=== PATIENT | male | born 1965 | race Two or more races ===

== ENCOUNTER 2022-07-27 12:27 | Inpatient (IN) | payer OTHER ==
[2022-07-27] VITALS (38 sets, daily range): BP systolic 79–146; BP diastolic 43–126
[~2022-07-27] VITALS: Ht 157.5 cm; Wt 86.0 kg
[2022-07-27] MEDS ORDERED: ETOMIDATE (2MG/ML) 20ML VIAL IV ONE ×2 (12:28→12:45)
[2022-07-27] MEDS ORDERED: SUCCINYLCHOLINE CHLORIDE 20 MG/ML 10ML VIAL IV ONE ×2 (12:29→12:45)
[2022-07-27] MEDS ORDERED: MIDAZOLAM DRIP 50 mg/50mL 50 ML IV ONE (12:34)
[2022-07-27] MEDS: MIDAZOLAM DRIP 50 mg/50mL 50 ML IV SCH (12:39)
[2022-07-27] MEDS ORDERED: methylPREDNISolone SOD SUCC 125 MG/2 ML VL IV ONE (12:45)
[2022-07-27] MEDS: PROPOFOL 100 ML IV SCH (13:00)
[2022-07-27] MEDS ORDERED: PROPOFOL 100 ML IV ONE (13:02)
[2022-07-27 13:09] LABS: Basophils # (auto) 0 10 ^3/uL (0-0.2); Basophils % (auto) 0.5 % (0.0-2.0); Eosinophils # (auto) 0 10 ^3/uL (0-0.8); Hemoglobin 16.9 g/dL (13.5-17.5); Lymphocytes # (auto) 0.7 10 ^3/uL (0.4-5.4); Lymphocytes % (auto) 8.6 % (10.0-50.0); Mean Corpuscular Hemoglobin 29.1 pg (28.0-32.0); Mean Corpuscular Volume 91.2 fL (80.0-100.0); Monocytes # (auto) 0.9 10 ^3/uL (0-1.3); Monocytes % (auto) 10.8 % (0.0-12.0); Neutrophils # (auto) 6.3 10 ^3/uL (1.6-8.6); Neutrophils % (auto) 80.1 % (37.0-80.0); Red Blood Cells 5.81 10^6/uL (4.5-5.90); Red Cell Distribution Width 16.3 % (11.8-14.3); White Blood Cell 7.9 10^3/uL (4.4-10.8)
[2022-07-27] MEDS ORDERED: FUROSEMIDE 40 MG/4 ML VIAL IV ONE (14:00)
[2022-07-27] MEDS ORDERED: ROCURONIUM 10MG/ML 10ML VIAL IV ONE ×2 (14:06→14:30)
[2022-07-27 14:08] LABS: Nucleated Red Blood Cells % 9.6 %
[2022-07-27] MEDS ORDERED: IOHEXOL 300 MG/ML 100ML BOTTLE IJ ONE (14:18)
[2022-07-27] MEDS ORDERED: IOHEXOL 350 MG/ML 100ML IJ ONE (14:21)
[2022-07-27] MEDS ORDERED: NITROGLYCERIN 0.4 MG SL TAB SL PRN (15:15)
[2022-07-27] MEDS: fentaNYL Drip 2500mCg/250mlNS 250 ML IV SCH (15:15)
[2022-07-27] MEDS ORDERED: MORPHINE SULFATE INJ 2 MG/ml SYRG IV PRN (15:15)
[2022-07-27] MEDS ORDERED: IPRATROPIUM BROM 0.5 MG/2.5ML INH SOL NEB SCH (15:30)
[2022-07-27] MEDS ORDERED: ONDANSETRON HCL 4 MG/2 ML VIAL IV PRN (15:30)
[2022-07-27 16:02] LABS: Urine Bacteria FEW /hpf (None Seen); Urine Blood 2+ /uL (Negative); Urine Hyaline Cast MANY /lpf (0 - 2); Urine Mucus FEW (None Seen); Urine Specific Gravity 1.023 (1.001-1.035); Urine Sperm PRESENT /hpf (None Seen); Urine WBC 5 /hpf (0 - 3)
[2022-07-27 16:54] LABS: Alkaline Phosphatase 114 U/L (45-117); Anion Gap 17 (5-15); Aspartate Aminotransferase 591 U/L (15-37); Carbon Dioxide 21 mmol/L (21-32); Chloride 94 mmol/L (98-107); GFR African American 14 mL/min; GFR Non-African American 11 mL/min; Glucose 144 mg/dL (74-106); Sodium 132 mmol/L (136-145)
[2022-07-27 16:55] LABS: Albumin 2.4 g/dL (3.4-5.0); Bilirubin, Total 8.8 mg/dL (0.2-1.0); CRP High Sensitivity 8.37 mg/dL (< 0.3); Calcium 6.6 mg/dL (8.5-10.1); Magnesium 3.4 mg/dL (1.6-2.6); Total Protein 5.1 g/dL (6.4-8.2)
[2022-07-27 16:58] LABS: Alanine Aminotransferase 1380 U/L (16-61)
[2022-07-27 17:00] LABS: BUN/Creatinine Ratio 33.9; Blood Urea Nitrogen 187 mg/dL (7-18); Potassium 6.6 mmol/L (3.5-5.1)
[2022-07-27] MEDS: NOREPINEPHRINE 8 MG/250ML KIT 250 ML IV SCH (17:00)
[2022-07-27] MEDS ORDERED: CALCIUM GLUC 1,000mg/50ml-NS 50 ML IV ONE ×2 (17:30→23:15)
[2022-07-27] MEDS ORDERED: InsuLIN REG 1unit/0.01ml Soln (100units/ml) IV ONE ×3 (17:30→23:15)
[2022-07-27] MEDS ORDERED: SODIUM BICARBONATE 8.4 % INJ 50ML VIAL IV ONE ×2 (17:30→23:15)
[2022-07-27] MEDS ORDERED: SODIUM BICARBONATE 8.4% INJ 50ML SYRINGE IV ONE (17:30)
[2022-07-27] MEDS ORDERED: DEXTROSE (50%) 50ML SYRG IV ONE ×3 (17:30→23:15)
[2022-07-27] MEDS: ALBUTEROL SULF 2.5 MG/0.5ML(0.5%) NEB SOLN NEB SCH (18:24)
[2022-07-27] MEDS: IPRATROPIUM BROM 0.5 MG/2.5ML INH SOL NEB SCH (18:24)
[2022-07-27] MEDS: BUDESONIDE (INHALATION) 0.5 MG/2 ML NEB NEB SCH (18:24)
[2022-07-27 20:05] LABS: Amphetamine Screen, Urine NEGATIVE (NEGATIVE); Barbiturate Scree,Urine NEGATIVE (NEGATIVE); Benzodiazephine Screen, Urine POSITIVE (NEGATIVE); Cannabinoid Screen, Urine NEGATIVE (NEGATIVE); Cocaine Screen, Urine NEGATIVE (NEGATIVE); Opiate Scree,Urine NEGATIVE (NEGATIVE); Phencyclidine Screen, Urine NEGATIVE (NEGATIVE)
[2022-07-27] MEDS: methylPREDNISolone SOD SUCC 40 MG/ML VL IV SCH (22:00)
[2022-07-27 22:05] LABS: BUN/Creatinine Ratio 39.2; Calcium 6.8 mg/dL (8.5-10.1)
[2022-07-28] VITALS (105 sets, daily range): BP systolic 64–159; BP diastolic 35–72
[2022-07-28] MEDS: IPRATROPIUM BROM 0.5 MG/2.5ML INH SOL NEB SCH ×4 (00:14→18:22)
[2022-07-28] MEDS: MIDAZOLAM DRIP 50 mg/50mL 50 ML IV SCH ×6 (01:49→23:47)
[2022-07-28 04:11] LABS: Basophils # (auto) 0 10 ^3/uL (0-0.2); Basophils % (auto) 0.3 % (0.0-2.0); Eosinophils # (auto) 0 10 ^3/uL (0-0.8); Hematocrit 50.5 % (41.0-53.0); Hemoglobin 16.5 g/dL (13.5-17.5); Lymphocytes # (auto) 0.2 10 ^3/uL (0.4-5.4); Lymphocytes % (auto) 1.8 % (10.0-50.0); Mean Corpuscular Hemoglobin 28.5 pg (28.0-32.0); Mean Corpuscular Hgb Conc. 32.7 g/dL (32.0-36.0); Mean Corpuscular Volume 87.2 fL (80.0-100.0); Monocytes # (auto) 0.3 10 ^3/uL (0-1.3); Monocytes % (auto) 2.8 % (0.0-12.0); Neutrophils # (auto) 9.2 10 ^3/uL (1.6-8.6); Neutrophils % (auto) 95.1 % (37.0-80.0); Red Blood Cells 5.79 10^6/uL (4.5-5.90); Red Cell Distribution Width 15.9 % (11.8-14.3); White Blood Cell 9.6 10^3/uL (4.4-10.8)
[2022-07-28 04:25] LABS: Nucleated Red Blood Cells % 3.1 %
[2022-07-28 05:30] LABS: Albumin 2.5 g/dL (3.4-5.0); BUN/Creatinine Ratio 41.8; Bilirubin, Total 11.6 mg/dL (0.2-1.0); Calcium 7.5 mg/dL (8.5-10.1); Magnesium 2.9 mg/dL (1.6-2.6); Total Protein 5.4 g/dL (6.4-8.2)
[2022-07-28 05:32] LABS: Potassium 5.8 mmol/L (3.5-5.1)
[2022-07-28] MEDS: BUDESONIDE (INHALATION) 0.5 MG/2 ML NEB NEB SCH ×2 (05:59→18:22)
[2022-07-28] MEDS: ALBUTEROL SULF 2.5 MG/0.5ML(0.5%) NEB SOLN NEB SCH ×3 (05:59→18:22)
[2022-07-28] MEDS ORDERED: CALCIUM GLUC 1,000mg/50ml-NS 50 ML IV ONE ×3 (06:00→09:30)
[2022-07-28] MEDS ORDERED: DEXTROSE (50%) 50ML SYRG IV ONE (06:00)
[2022-07-28] MEDS ORDERED: SODIUM BICARBONATE 8.4 % INJ 50ML VIAL IV ONE ×3 (06:00→09:45)
[2022-07-28] MEDS ORDERED: InsuLIN REG 1unit/0.01ml Soln (100units/ml) IV ONE (06:00)
[2022-07-28] MEDS ORDERED: DEXTROSE 50% SYRINGE 50 ML IV ONE (06:03)
[2022-07-28] MEDS ORDERED: MILRINONE 20MG/100ML 100 ML IV SCH (08:00)
[2022-07-28] MEDS ORDERED: ALBUTEROL SULF 2.5 MG/0.5ML(0.5%) NEB SOLN NEB ONE (09:30)
[2022-07-28] MEDS ORDERED: SODIUM BICARBONATE 8.4% INJ 50ML SYRINGE IV ONE (09:30)
[2022-07-28] MEDS ORDERED: SODIUM ZIRCONIUM CYCL 10 GM PAK PO ONE (09:30)
[2022-07-28] MEDS ORDERED: SODIUM CHLORIDE 0.9% 2,000 ML IV ONE (09:45)
[2022-07-28] MEDS ORDERED: FUROSEMIDE 100 MG/10ML VIAL IV ONE (09:45)
[2022-07-28] MEDS ORDERED: ALBUTEROL SULF 2.5 MG/0.5ML(0.5%) NEB SOLN ONE (09:46)
[2022-07-28] MEDS: PANTOPRAZOLE 40 MG/10 ML VIAL INJ IV SCH (09:47)
[2022-07-28] MEDS: methylPREDNISolone SOD SUCC 40 MG/ML VL IV SCH (09:47)
[2022-07-28] MEDS ORDERED: ENOXAPARIN SOD 40 MG/0.4 ML SYRINGE SC SCH (10:00)
[2022-07-28] MEDS: SODIUM CHLORIDE 0.9% 1,000 ML IV SCH ×4 (11:21→23:58)
[2022-07-28] MEDS: fentaNYL Drip 2500mCg/250mlNS 250 ML IV SCH (11:22)
[2022-07-28] MEDS: NOREPINEPHRINE 8 MG/250ML KIT 250 ML IV SCH (12:07)
[2022-07-28] MEDS: PROPOFOL 100 ML IV SCH (13:00)
[2022-07-28 13:26] LABS: Calcium 7.4 mg/dL (8.5-10.1); Potassium 4.4 mmol/L (3.5-5.1)
[2022-07-28 13:33] LABS: BUN/Creatinine Ratio 42.6
[2022-07-28] MEDS: SODIUM ZIRCONIUM CYCL 10 GM PAK PO SCH ×2 (14:00→21:34)
[2022-07-28] MEDS ORDERED: MEROPENEM 500MG IVPB 50 ML IV ONE (16:15)
[2022-07-28] MEDS ORDERED: SODIUM CHLORIDE 0.9% 1,000 ML IV SCH (16:15)
[2022-07-28] MEDS: ALBUMIN 25% 100 ML IV SCH (16:58)
[2022-07-28 17:58] LABS: Calcium 7.7 mg/dL (8.5-10.1); Potassium 4.4 mmol/L (3.5-5.1)
[2022-07-28 18:12] LABS: BUN/Creatinine Ratio 41.1
[2022-07-28] MEDS: NOREPINEPHRINE BITARTRATE 16 MG in SODIUM CHL 0.9% 234 ML IV SCH (19:35)
[2022-07-28] MEDS ORDERED: PHENYLEPHRINE IV 250 ML IV ONE (19:48)
[2022-07-28] MEDS ORDERED: PHENYLEPHRINE HCL 10 MG/ML VL ONE (19:48)
[2022-07-28] MEDS: PHENYLEPHRINE INJ 40 MG in SODIUM CHL 0.9% 246 ML IV SCH (19:55)
[2022-07-28] MEDS: MEROPENEM 500MG IVPB 50 ML IV SCH (21:35)
[2022-07-29] VITALS (104 sets, daily range): BP systolic 95–199; BP diastolic 45–193
[2022-07-29] MEDS: IPRATROPIUM BROM 0.5 MG/2.5ML INH SOL NEB SCH ×4 (00:19→18:09)
[2022-07-29] MEDS: ALBUMIN 25% 100 ML IV SCH ×2 (00:48→09:41)
[2022-07-29 03:38] LABS: Basophils # (auto) 0.1 10 ^3/uL (0-0.2); Basophils % (auto) 0.5 % (0.0-2.0); Eosinophils # (auto) 0 10 ^3/uL (0-0.8); Hematocrit 48.6 % (41.0-53.0); Hemoglobin 15.8 g/dL (13.5-17.5); Lymphocytes # (auto) 0.1 10 ^3/uL (0.4-5.4); Lymphocytes % (auto) 1.4 % (10.0-50.0); Mean Corpuscular Hgb Conc. 32.4 g/dL (32.0-36.0); Mean Corpuscular Volume 86.5 fL (80.0-100.0); Monocytes # (auto) 0.6 10 ^3/uL (0-1.3); Neutrophils # (auto) 9.3 10 ^3/uL (1.6-8.6); Neutrophils % (auto) 92.1 % (37.0-80.0); Nucleated Red Blood Cells % 1.8 %; Red Blood Cells 5.62 10^6/uL (4.5-5.90); White Blood Cell 10.1 10^3/uL (4.4-10.8)
[2022-07-29 03:47] LABS: Potassium 4.2 mmol/L (3.5-5.1)
[2022-07-29 03:53] LABS: Partial Thromboplastin Time 41.3 sec (24.6-33.4)
[2022-07-29 03:55] LABS: Bilirubin, Total 15.3 mg/dL (0.2-1.0); INR 3.25 (0.9-1.15); Total Protein 5.6 g/dL (6.4-8.2)
[2022-07-29] MEDS: MIDAZOLAM DRIP 50 mg/50mL 50 ML IV SCH ×4 (04:34→20:16)
[2022-07-29] MEDS: NOREPINEPHRINE BITARTRATE 16 MG in SODIUM CHL 0.9% 234 ML IV SCH (05:04)
[2022-07-29] MEDS: SODIUM ZIRCONIUM CYCL 10 GM PAK PO SCH ×3 (06:01→21:50)
[2022-07-29] MEDS: ALBUTEROL SULF 2.5 MG/0.5ML(0.5%) NEB SOLN NEB SCH ×3 (06:06→18:09)
[2022-07-29] MEDS: BUDESONIDE (INHALATION) 0.5 MG/2 ML NEB NEB SCH ×2 (06:06→18:09)
[2022-07-29] MEDS: PANTOPRAZOLE 40 MG/10 ML VIAL INJ IV SCH (09:39)
[2022-07-29] MEDS: MEROPENEM 500MG IVPB 50 ML IV SCH ×2 (09:40→21:51)
[2022-07-29] MEDS ORDERED: methylPREDNISolone SOD SUCC 40 MG/ML VL IV SCH (10:00)
[2022-07-29] MEDS: fentaNYL Drip 2500mCg/250mlNS 250 ML IV SCH (11:19)
[2022-07-29] MEDS: PHENYLEPHRINE INJ 40 MG in SODIUM CHL 0.9% 246 ML IV SCH (11:19)
[2022-07-29] MEDS: SODIUM CHLORIDE 0.9% 1,000 ML IV SCH ×2 (11:19→20:16)
[2022-07-29] MEDS: PROPOFOL 100 ML IV SCH (11:19)
[2022-07-30] VITALS (107 sets, daily range): BP systolic 90–158; BP diastolic 43–153
[2022-07-30] MEDS: IPRATROPIUM BROM 0.5 MG/2.5ML INH SOL NEB SCH ×6 (00:16→22:09)
[2022-07-30] MEDS: MIDAZOLAM DRIP 50 mg/50mL 50 ML IV SCH ×4 (01:43→22:25)
[2022-07-30 03:44] LABS: Basophils # (auto) 0 10 ^3/uL (0-0.2); Basophils % (auto) 0.4 % (0.0-2.0); Eosinophils # (auto) 0 10 ^3/uL (0-0.8); Eosinophils % (auto) 0.2 % (0.0-7.0); Hematocrit 40.7 % (41.0-53.0); Hemoglobin 13.9 g/dL (13.5-17.5); Lymphocytes # (auto) 0.1 10 ^3/uL (0.4-5.4); Lymphocytes % (auto) 1.9 % (10.0-50.0); Mean Corpuscular Hemoglobin 29.4 pg (28.0-32.0); Mean Corpuscular Hgb Conc. 34.1 g/dL (32.0-36.0); Monocytes # (auto) 0.3 10 ^3/uL (0-1.3); Monocytes % (auto) 4.9 % (0.0-12.0); Neutrophils # (auto) 5.3 10 ^3/uL (1.6-8.6); Neutrophils % (auto) 92.6 % (37.0-80.0); Nucleated Red Blood Cells % 2.1 %; Red Blood Cells 4.73 10^6/uL (4.5-5.90); Red Cell Distribution Width 16.1 % (11.8-14.3); White Blood Cell 5.7 10^3/uL (4.4-10.8)
[2022-07-30 04:03] LABS: Albumin 2.7 g/dL (3.4-5.0); BUN/Creatinine Ratio 51.4; Calcium 8.1 mg/dL (8.5-10.1)
[2022-07-30 04:14] LABS: Bilirubin, Total 15.6 mg/dL (0.2-1.0); Total Protein 4.7 g/dL (6.4-8.2)
[2022-07-30] MEDS: PHENYLEPHRINE INJ 40 MG in SODIUM CHL 0.9% 246 ML IV SCH ×2 (04:50→21:30)
[2022-07-30] MEDS: BUDESONIDE (INHALATION) 0.5 MG/2 ML NEB NEB SCH ×2 (05:48→22:09)
[2022-07-30] MEDS: ALBUTEROL SULF 2.5 MG/0.5ML(0.5%) NEB SOLN NEB SCH ×5 (05:48→22:09)
[2022-07-30] MEDS: SODIUM CHLORIDE 0.9% 1,000 ML IV SCH ×2 (05:58→10:13)
[2022-07-30] MEDS: SODIUM ZIRCONIUM CYCL 10 GM PAK PO SCH (05:58)
[2022-07-30] MEDS: PANTOPRAZOLE 40 MG/10 ML VIAL INJ IV SCH (10:04)
[2022-07-30] MEDS: MEROPENEM 500MG IVPB 50 ML IV SCH ×2 (10:05→22:25)
[2022-07-30] MEDS ORDERED: FUROSEMIDE 100 MG/10ML VIAL IV ONE (10:15)
[2022-07-30] MEDS: FREE WATER GT SCH ×2 (12:00→18:00)
[2022-07-30] MEDS: PROPOFOL 100 ML IV SCH (13:00)
[2022-07-30] MEDS: fentaNYL Drip 2500mCg/250mlNS 250 ML IV SCH (15:15)
[2022-07-30] MEDS: NOREPINEPHRINE BITARTRATE 16 MG in SODIUM CHL 0.9% 234 ML IV SCH (19:15)
[2022-07-30] MEDS: methylPREDNISolone SOD SUCC 40 MG/ML VL IV SCH (22:26)
[2022-07-31] VITALS (91 sets, daily range): BP systolic 92–137; BP diastolic 42–64
[2022-07-31 04:28] LABS: Basophils # (auto) 0 10 ^3/uL (0-0.2); Basophils % (auto) 0.1 % (0.0-2.0); Eosinophils # (auto) 0 10 ^3/uL (0-0.8); Eosinophils % (auto) 0.1 % (0.0-7.0); Hemoglobin 14.8 g/dL (13.5-17.5); Lymphocytes # (auto) 0.1 10 ^3/uL (0.4-5.4); Lymphocytes % (auto) 2.1 % (10.0-50.0); Monocytes # (auto) 0.2 10 ^3/uL (0-1.3)
[2022-07-31 04:33] LABS: Hematocrit 45.1 % (41.0-53.0); Mean Corpuscular Hemoglobin 28.1 pg (28.0-32.0); Mean Corpuscular Hgb Conc. 32.8 g/dL (32.0-36.0); Mean Corpuscular Volume 85.9 fL (80.0-100.0); Monocytes % (auto) 4.3 % (0.0-12.0); Neutrophils # (auto) 5.1 10 ^3/uL (1.6-8.6); Neutrophils % (auto) 93.4 % (37.0-80.0); Nucleated Red Blood Cells % 2.8 %; Red Blood Cells 5.24 10^6/uL (4.5-5.90); Red Cell Distribution Width 16.5 % (11.8-14.3); White Blood Cell 5.5 10^3/uL (4.4-10.8)
[2022-07-31 04:48] LABS: Albumin 2.7 g/dL (3.4-5.0); Calcium 8.4 mg/dL (8.5-10.1); Potassium 3.9 mmol/L (3.5-5.1)
[2022-07-31 04:52] LABS: BUN/Creatinine Ratio 49.4; Total Protein 4.8 g/dL (6.4-8.2)
[2022-07-31] MEDS: SODIUM CHLORIDE 0.9% 1,000 ML IV SCH (05:50)
[2022-07-31] MEDS: MIDAZOLAM DRIP 50 mg/50mL 50 ML IV SCH ×4 (05:50→19:58)
[2022-07-31] MEDS: ALBUTEROL SULF 2.5 MG/0.5ML(0.5%) NEB SOLN NEB SCH ×5 (05:52→22:38)
[2022-07-31] MEDS: BUDESONIDE (INHALATION) 0.5 MG/2 ML NEB NEB SCH ×2 (05:52→22:38)
[2022-07-31] MEDS: IPRATROPIUM BROM 0.5 MG/2.5ML INH SOL NEB SCH ×5 (05:52→22:37)
[2022-07-31] MEDS: FREE WATER GT SCH ×6 (06:00→22:06)
[2022-07-31] MEDS ORDERED: D5W/SOD CHL 0.45% 1,000 ML IV SCH (08:30)
[2022-07-31] MEDS: methylPREDNISolone SOD SUCC 40 MG/ML VL IV SCH (09:35)
[2022-07-31] MEDS: PANTOPRAZOLE 40 MG/10 ML VIAL INJ IV SCH (09:35)
[2022-07-31] MEDS: MEROPENEM 500MG IVPB 50 ML IV SCH (09:36)
[2022-07-31] MEDS: PROPOFOL 100 ML IV SCH (13:00)
[2022-07-31] MEDS: D5W/SOD CHL 0.45% 1,000 ML IV SCH ×2 (13:30→22:06)
[2022-07-31] MEDS: PHENYLEPHRINE INJ 40 MG in SODIUM CHL 0.9% 246 ML IV SCH (14:10)
[2022-07-31] MEDS: fentaNYL Drip 2500mCg/250mlNS 250 ML IV SCH (15:32)
[2022-07-31] MEDS: NOREPINEPHRINE BITARTRATE 16 MG in SODIUM CHL 0.9% 234 ML IV SCH (19:15)
[2022-08-01] VITALS (107 sets, daily range): BP systolic 97–143; BP diastolic 42–66
[2022-08-01] MEDS: MIDAZOLAM DRIP 50 mg/50mL 50 ML IV SCH (01:11)
[2022-08-01] MEDS: FREE WATER GT SCH ×7 (02:00→22:00)
[2022-08-01 04:34] LABS: Basophils # (auto) 0 10 ^3/uL (0-0.2); Eosinophils # (auto) 0 10 ^3/uL (0-0.8); Lymphocytes # (auto) 0.1 10 ^3/uL (0.4-5.4); Monocytes # (auto) 0.3 10 ^3/uL (0-1.3); Red Blood Cells 5.22 10^6/uL (4.5-5.90)
[2022-08-01 04:39] LABS: Basophils % (auto) 0.1 % (0.0-2.0); Hemoglobin 14.7 g/dL (13.5-17.5); Lymphocytes % (auto) 1.4 % (10.0-50.0); Mean Corpuscular Hemoglobin 28.1 pg (28.0-32.0); Mean Corpuscular Hgb Conc. 32.5 g/dL (32.0-36.0); Mean Corpuscular Volume 86.3 fL (80.0-100.0); Monocytes % (auto) 5.1 % (0.0-12.0); Neutrophils # (auto) 5.8 10 ^3/uL (1.6-8.6); Neutrophils % (auto) 93.4 % (37.0-80.0); Nucleated Red Blood Cells % 1.1 %; Red Cell Distribution Width 17.3 % (11.8-14.3); White Blood Cell 6.2 10^3/uL (4.4-10.8)
[2022-08-01 04:55] LABS: Potassium 4.1 mmol/L (3.5-5.1)
[2022-08-01 05:00] LABS: Albumin 2.4 g/dL (3.4-5.0); BUN/Creatinine Ratio 49.2; Bilirubin, Total 22.6 mg/dL (0.2-1.0); Calcium 7.9 mg/dL (8.5-10.1); Total Protein 4.4 g/dL (6.4-8.2)
[2022-08-01] MEDS: IPRATROPIUM BROM 0.5 MG/2.5ML INH SOL NEB SCH ×5 (06:11→22:27)
[2022-08-01] MEDS: BUDESONIDE (INHALATION) 0.5 MG/2 ML NEB NEB SCH ×2 (06:11→22:27)
[2022-08-01] MEDS: ALBUTEROL SULF 2.5 MG/0.5ML(0.5%) NEB SOLN NEB SCH ×5 (06:11→22:27)
[2022-08-01] MEDS: PHENYLEPHRINE INJ 40 MG in SODIUM CHL 0.9% 246 ML IV SCH ×2 (06:28→23:30)
[2022-08-01] MEDS: D5W/SOD CHL 0.45% 1,000 ML IV SCH (07:49)
[2022-08-01] MEDS: PROPOFOL 100 ML IV SCH ×2 (07:49→16:06)
[2022-08-01] MEDS: NOREPINEPHRINE BITARTRATE 16 MG in SODIUM CHL 0.9% 234 ML IV SCH (07:50)
[2022-08-01] MEDS: fentaNYL Drip 2500mCg/250mlNS 250 ML IV SCH (09:22)
[2022-08-01] MEDS: methylPREDNISolone SOD SUCC 40 MG/ML VL IV SCH (09:22)
[2022-08-01] MEDS: PANTOPRAZOLE 40 MG/10 ML VIAL INJ IV SCH (10:26)
[2022-08-01] MEDS ORDERED: Glucerna 1.2 Cal 1Liter BOTTLE GT SCH (11:45)
[2022-08-01] MEDS ORDERED: phytonadione 10 MG in SODIUM CHL 0.9% 50 ML IV ONE (18:00)
[2022-08-02] VITALS (105 sets, daily range): BP systolic 86–173; BP diastolic 42–86
[2022-08-02] MEDS: PROPOFOL 100 ML IV SCH (00:41)
[2022-08-02] MEDS: FREE WATER GT SCH ×6 (02:00→22:17)
[2022-08-02 03:39] LABS: Eosinophils # (auto) 0 10 ^3/uL (0-0.8); Hematocrit 47.3 % (41.0-53.0); Monocytes # (auto) 0.5 10 ^3/uL (0-1.3); Monocytes % (auto) 5.2 % (0.0-12.0); Nucleated Red Blood Cells % 0.4 %; White Blood Cell 10.6 10^3/uL (4.4-10.8)
[2022-08-02 03:51] LABS: INR 2.08 (0.9-1.15)
[2022-08-02 04:11] LABS: Basophils # (auto) 0 10 ^3/uL (0-0.2); Basophils % (auto) 0.2 % (0.0-2.0); Lymphocytes # (auto) 0.2 10 ^3/uL (0.4-5.4); Mean Corpuscular Hemoglobin 27.3 pg (28.0-32.0); Mean Corpuscular Hgb Conc. 31.8 g/dL (32.0-36.0); Mean Corpuscular Volume 85.8 fL (80.0-100.0); Neutrophils # (auto) 9.8 10 ^3/uL (1.6-8.6); Neutrophils % (auto) 92.6 % (37.0-80.0); Red Blood Cells 5.52 10^6/uL (4.5-5.90); Red Cell Distribution Width 17.6 % (11.8-14.3)
[2022-08-02] MEDS: D5W/SOD CHL 0.45% 1,000 ML IV SCH (04:22)
[2022-08-02 04:29] LABS: Albumin 2.3 g/dL (3.4-5.0); Calcium 8.5 mg/dL (8.5-10.1); Potassium 4.2 mmol/L (3.5-5.1)
[2022-08-02 04:31] LABS: BUN/Creatinine Ratio 41.6
[2022-08-02 04:43] LABS: Bilirubin, Total 25.1 mg/dL (0.2-1.0)
[2022-08-02 06:32] LABS: Total Protein 4.5 g/dL (6.4-8.2)
[2022-08-02] MEDS: MIDAZOLAM DRIP 50 mg/50mL 50 ML IV SCH ×2 (08:45→18:45)
[2022-08-02] MEDS: methylPREDNISolone SOD SUCC 40 MG/ML VL IV SCH (10:28)
[2022-08-02] MEDS: PANTOPRAZOLE 40 MG/10 ML VIAL INJ IV SCH (10:28)
[2022-08-02] MEDS: fentaNYL Drip 2500mCg/250mlNS 250 ML IV SCH (12:30)
[2022-08-02] MEDS: BUDESONIDE (INHALATION) 0.5 MG/2 ML NEB NEB SCH ×2 (13:43→22:19)
[2022-08-02] MEDS: IPRATROPIUM BROM 0.5 MG/2.5ML INH SOL NEB SCH ×3 (13:43→22:19)
[2022-08-02] MEDS: ALBUTEROL SULF 2.5 MG/0.5ML(0.5%) NEB SOLN NEB SCH ×3 (13:43→22:19)
[2022-08-02] MEDS: PHENYLEPHRINE INJ 40 MG in SODIUM CHL 0.9% 246 ML IV SCH (16:10)
[2022-08-02] MEDS: NOREPINEPHRINE BITARTRATE 16 MG in SODIUM CHL 0.9% 234 ML IV SCH (19:15)
[2022-08-02] MEDS ORDERED: NOREPINEPHRINE 8 MG/250ML KIT 250 ML IV ONE (20:38)
[2022-08-02] MEDS: NOREPINEPHRINE 8 MG/250ML KIT 250 ML IV SCH (21:00)
[2022-08-02] MEDS: URSODIOL 300 MG CAP PO SCH (22:17)
[2022-08-03] VITALS (104 sets, daily range): BP systolic 81–162; BP diastolic 45–124
[2022-08-03] MEDS: FREE WATER GT SCH ×6 (02:29→22:00)
[2022-08-03 04:09] LABS: Basophils % (auto) 0.1 % (0.0-2.0)
[2022-08-03 04:14] LABS: Basophils # (auto) 0 10 ^3/uL (0-0.2); Eosinophils # (auto) 0 10 ^3/uL (0-0.8); Eosinophils % (auto) 0.3 % (0.0-7.0); Hematocrit 49.3 % (41.0-53.0); Hemoglobin 15.8 g/dL (13.5-17.5); Lymphocytes # (auto) 0.3 10 ^3/uL (0.4-5.4); Lymphocytes % (auto) 2.3 % (10.0-50.0); Mean Corpuscular Hemoglobin 27.3 pg (28.0-32.0); Mean Corpuscular Hgb Conc. 32.1 g/dL (32.0-36.0); Monocytes # (auto) 0.5 10 ^3/uL (0-1.3); Monocytes % (auto) 3.7 % (0.0-12.0); Neutrophils # (auto) 13.5 10 ^3/uL (1.6-8.6); Neutrophils % (auto) 93.6 % (37.0-80.0); Red Cell Distribution Width 18.5 % (11.8-14.3); White Blood Cell 14.5 10^3/uL (4.4-10.8)
[2022-08-03 04:36] LABS: Albumin 2.2 g/dL (3.4-5.0); Calcium 8.2 mg/dL (8.5-10.1); Potassium 4.2 mmol/L (3.5-5.1)
[2022-08-03] MEDS: MIDAZOLAM DRIP 50 mg/50mL 50 ML IV SCH ×2 (04:45→14:45)
[2022-08-03 04:49] LABS: Bilirubin, Total 32.8 mg/dL (0.2-1.0)
[2022-08-03 04:56] LABS: BUN/Creatinine Ratio 30.6
[2022-08-03 05:25] LABS: Total Protein 4.5 g/dL (6.4-8.2)
[2022-08-03] MEDS: BUDESONIDE (INHALATION) 0.5 MG/2 ML NEB NEB SCH ×2 (06:01→18:05)
[2022-08-03] MEDS: ALBUTEROL SULF 2.5 MG/0.5ML(0.5%) NEB SOLN NEB SCH ×4 (06:02→18:05)
[2022-08-03] MEDS: IPRATROPIUM BROM 0.5 MG/2.5ML INH SOL NEB SCH ×4 (06:02→18:05)
[2022-08-03] MEDS: PHENYLEPHRINE INJ 40 MG in SODIUM CHL 0.9% 246 ML IV SCH (08:50)
[2022-08-03] MEDS: methylPREDNISolone SOD SUCC 40 MG/ML VL IV SCH (10:00)
[2022-08-03] MEDS: URSODIOL 300 MG CAP PO SCH ×2 (10:00→22:00)
[2022-08-03] MEDS: PANTOPRAZOLE 40 MG/10 ML VIAL INJ IV SCH (10:00)
[2022-08-03 10:24] LABS: Hepatitis B Surface Antibody Negative (Negative)
[2022-08-03 10:48] LABS: Hepatitis A Total Antibody Positive (Negative)
[2022-08-03] MEDS: DOXYCYCLINE 100MG/250ML 250 ML IV SCH (11:45)
[2022-08-03] MEDS ORDERED: MEROPENEM 500MG IVPB 50 ML IV SCH (12:20)
[2022-08-03] MEDS: fentaNYL Drip 2500mCg/250mlNS 250 ML IV SCH (12:30)
[2022-08-03 12:51] LABS: Hepatitis C Antibody Negative (Negative)
[2022-08-03 13:22] LABS: Hepatitis A Ab IgM Negative; Hepatitis B Core IgM Negative
[2022-08-03 13:23] LABS: Hepatitis C Antibody Negative (Negative)
[2022-08-03] MEDS: PROPOFOL 100 ML IV SCH ×2 (15:25→23:55)
[2022-08-03] MEDS: MEROPENEM 1GM IVPB 100 ML IV SCH ×2 (15:25→22:46)
[2022-08-03] MEDS: NOREPINEPHRINE 8 MG/250ML KIT 250 ML IV SCH (21:00)
[2022-08-04] VITALS (63 sets, daily range): BP systolic 84–125; BP diastolic 47–68
[2022-08-04] MEDS: MIDAZOLAM DRIP 50 mg/50mL 50 ML IV SCH ×2 (00:45→10:45)
[2022-08-04] MEDS: PHENYLEPHRINE INJ 40 MG in SODIUM CHL 0.9% 246 ML IV SCH (01:30)
[2022-08-04] MEDS: DOXYCYCLINE 100MG/250ML 250 ML IV SCH ×3 (02:01→23:35)
[2022-08-04] MEDS: FREE WATER GT SCH ×4 (02:02→13:47)
[2022-08-04 06:24] LABS: Albumin 2.1 g/dL (3.4-5.0); Calcium 8.6 mg/dL (8.5-10.1); Potassium 3.6 mmol/L (3.5-5.1)
[2022-08-04 06:27] LABS: BUN/Creatinine Ratio 26.6
[2022-08-04] MEDS: IPRATROPIUM BROM 0.5 MG/2.5ML INH SOL NEB SCH ×6 (06:38→22:10)
[2022-08-04] MEDS: BUDESONIDE (INHALATION) 0.5 MG/2 ML NEB NEB SCH ×2 (06:38→22:10)
[2022-08-04] MEDS: ALBUTEROL SULF 2.5 MG/0.5ML(0.5%) NEB SOLN NEB SCH ×6 (06:38→22:10)
[2022-08-04 06:40] LABS: Bilirubin, Total 29.6 mg/dL (0.2-1.0)
[2022-08-04 07:53] LABS: Total Protein 4.5 g/dL (6.4-8.2)
[2022-08-04] MEDS: PANTOPRAZOLE 40 MG/10 ML VIAL INJ IV SCH (09:41)
[2022-08-04] MEDS: MEROPENEM 1GM IVPB 100 ML IV SCH (09:42)
[2022-08-04] MEDS: methylPREDNISolone SOD SUCC 40 MG/ML VL IV SCH (09:42)
[2022-08-04] MEDS: URSODIOL 300 MG CAP PO SCH ×2 (10:00→22:19)
[2022-08-04] MEDS: fentaNYL Drip 2500mCg/250mlNS 250 ML IV SCH (12:30)
[2022-08-04] MEDS: D5W/SOD CHL 0.45% 1,000 ML IV SCH ×2 (13:46→22:20)
[2022-08-04 15:58] LABS: Magnesium 2.2 mg/dL (1.6-2.6); Phosphorus 2.8 mg/dL (2.5-4.90)
[2022-08-05 05:46] VITALS: BP 124/72
[2022-08-05] MEDS: ALBUTEROL SULF 2.5 MG/0.5ML(0.5%) NEB SOLN NEB SCH ×5 (06:50→22:52)
[2022-08-05] MEDS: IPRATROPIUM BROM 0.5 MG/2.5ML INH SOL NEB SCH ×5 (06:50→22:52)
[2022-08-05] MEDS: BUDESONIDE (INHALATION) 0.5 MG/2 ML NEB NEB SCH ×2 (06:50→19:03)
[2022-08-05 09:00] VITALS: BP 117/65
[2022-08-05] MEDS: PANTOPRAZOLE 40 MG/10 ML VIAL INJ IV SCH (09:32)
[2022-08-05] MEDS: methylPREDNISolone SOD SUCC 40 MG/ML VL IV SCH (09:32)
[2022-08-05] MEDS: URSODIOL 300 MG CAP PO SCH ×3 (09:33→22:50)
[2022-08-05 10:05] LABS: Eosinophils # (auto) 0.1 10 ^3/uL (0-0.8); Hemoglobin 15.1 g/dL (13.5-17.5); Monocytes # (auto) 0.3 10 ^3/uL (0-1.3); Neutrophils # (auto) 11.3 10 ^3/uL (1.6-8.6)
[2022-08-05 10:10] LABS: Basophils # (auto) 0.1 10 ^3/uL (0-0.2); Basophils % (auto) 0.9 % (0.0-2.0); Eosinophils % (auto) 0.7 % (0.0-7.0); Hematocrit 46.5 % (41.0-53.0); Lymphocytes # (auto) 0.3 10 ^3/uL (0.4-5.4); Lymphocytes % (auto) 2.3 % (10.0-50.0); Mean Corpuscular Hgb Conc. 32.4 g/dL (32.0-36.0); Mean Corpuscular Volume 83.3 fL (80.0-100.0); Monocytes % (auto) 2.5 % (0.0-12.0); Neutrophils % (auto) 93.6 % (37.0-80.0); Red Blood Cells 5.58 10^6/uL (4.5-5.90)
[2022-08-05 10:15] LABS: Calcium 8.1 mg/dL (8.5-10.1); Potassium 3.1 mmol/L (3.5-5.1)
[2022-08-05 10:28] LABS: Albumin 1.9 g/dL (3.4-5.0); Bilirubin, Total 30.9 mg/dL (0.2-1.0)
[2022-08-05 10:29] LABS: BUN/Creatinine Ratio 25.6
[2022-08-05] MEDS: DOXYCYCLINE 100MG/250ML 250 ML IV SCH ×2 (10:29→23:45)
[2022-08-05] MEDS ORDERED: POTASSIUM CHL 20MEQ/100ML 100 ML IV ONE ×2 (12:30→14:30)
[2022-08-05 13:00] VITALS: BP 116/69
[2022-08-05] MEDS ORDERED: FLUCONAZOLE 100 MG TAB PO ONE (15:15)
[2022-08-05 17:00] VITALS: BP 123/72
[2022-08-05 21:30] VITALS: BP 123/72
[2022-08-05 22:00] VITALS: BP 121/72
[2022-08-06] MEDS: ALBUTEROL SULF 2.5 MG/0.5ML(0.5%) NEB SOLN NEB SCH ×6 (02:41→21:59)
[2022-08-06] MEDS: IPRATROPIUM BROM 0.5 MG/2.5ML INH SOL NEB SCH ×6 (02:41→21:59)
[2022-08-06 05:00] VITALS: BP 119/69
[2022-08-06 08:28] VITALS: BP 131/70
[2022-08-06] MEDS: PANTOPRAZOLE 40 MG/10 ML VIAL INJ IV SCH (08:47)
[2022-08-06] MEDS: FLUCONAZOLE 100 MG TAB PO SCH (08:48)
[2022-08-06] MEDS: URSODIOL 300 MG CAP PO SCH ×2 (08:48→21:57)
[2022-08-06] MEDS: BUDESONIDE (INHALATION) 0.5 MG/2 ML NEB NEB SCH ×2 (09:42→17:48)
[2022-08-06] MEDS ORDERED: POTASSIUM CHL 20MEQ/100ML 100 ML IV SCH (11:15)
[2022-08-06] MEDS: DOXYCYCLINE 100MG/250ML 250 ML IV SCH ×2 (11:22→23:55)
[2022-08-06 12:35] VITALS: BP 135/69
[2022-08-06] MEDS ORDERED: POTASSIUM CHL 20MEQ/100ML 100 ML IV ONE (14:00)
[2022-08-06 17:08] VITALS: BP 140/87
[2022-08-06 22:00] VITALS: BP 128/73
[2022-08-07] VITALS (8 sets, daily range): BP systolic 90–140; BP diastolic 44–89
[2022-08-07] MEDS: ALBUTEROL SULF 2.5 MG/0.5ML(0.5%) NEB SOLN NEB SCH ×5 (06:24→22:00)
[2022-08-07] MEDS: IPRATROPIUM BROM 0.5 MG/2.5ML INH SOL NEB SCH ×5 (06:24→22:00)
[2022-08-07] MEDS: URSODIOL 300 MG CAP PO SCH ×2 (10:00→22:05)
[2022-08-07] MEDS: FLUCONAZOLE 100 MG TAB PO SCH (10:27)
[2022-08-07] MEDS: PANTOPRAZOLE 40 MG/10 ML VIAL INJ IV SCH (10:27)
[2022-08-07] MEDS ORDERED: URSO300C9 PO (10:49)
[2022-08-07] MEDS: DOXYCYCLINE 100MG/250ML 250 ML IV SCH (10:58)
[2022-08-07] MEDS: BUDESONIDE (INHALATION) 0.5 MG/2 ML NEB NEB SCH ×2 (10:59→18:50)
[2022-08-07 13:05] LABS: Red Cell Distribution Width 18.9 % (11.8-14.3)
[2022-08-07 13:06] LABS: Hematocrit 46.2 % (41.0-53.0); Hemoglobin 14.9 g/dL (13.5-17.5); Mean Corpuscular Hemoglobin 26.7 pg (28.0-32.0); Mean Corpuscular Hgb Conc. 32.3 g/dL (32.0-36.0); Mean Corpuscular Volume 82.6 fL (80.0-100.0); Red Blood Cells 5.59 10^6/uL (4.5-5.90); White Blood Cell 11.5 10^3/uL (4.4-10.8)
[2022-08-07 13:16] LABS: Band Neutrophils % (manual) 0; Basophils % (manual) 0 (0.0-2.0); Blast Cells 0; Metamyelocytes % 0; Myelocytes % 0; Promyelocytes % 0; Reactive Lymphocytes 0
[2022-08-07 13:33] LABS: BUN/Creatinine Ratio 24.3; Calcium 8.1 mg/dL (8.5-10.1); Potassium 3.4 mmol/L (3.5-5.1)
[2022-08-07 14:38] LABS: Eosinophils % (manual) 2 (0-7); Lymphocytes % (manual) 7 (10.0-50.0); Monocytes % (manual) 2 (0-12)
[2022-08-08 05:00] VITALS: BP 108/59
[2022-08-08] MEDS: ALBUTEROL SULF 2.5 MG/0.5ML(0.5%) NEB SOLN NEB SCH ×3 (06:48→14:00)
[2022-08-08] MEDS: IPRATROPIUM BROM 0.5 MG/2.5ML INH SOL NEB SCH ×3 (06:48→14:00)
[2022-08-08] MEDS: BUDESONIDE (INHALATION) 0.5 MG/2 ML NEB NEB SCH (06:48)
[2022-08-08 07:50] VITALS: BP 117/52
[2022-08-08 09:00] VITALS: BP 117/52
[2022-08-08] MEDS: FLUCONAZOLE 100 MG TAB PO SCH (10:01)
[2022-08-08] MEDS: PANTOPRAZOLE 40 MG/10 ML VIAL INJ IV SCH (10:01)
[2022-08-08] MEDS: URSODIOL 300 MG CAP PO SCH (10:02)
[2022-08-08] MEDS ORDERED: POTASSIUM EFFERVESENT TAB 25 MEQ GT ONE (10:30)
[2022-08-08 13:00] VITALS: BP_SYST 117; BP_SYST 90; BP_DIAS 44; BP_DIAS 52
[2022-08-08 13:36] LABS: Albumin 1.7 g/dL (3.4-5.0); Calcium 8.1 mg/dL (8.5-10.1); Potassium 3.7 mmol/L (3.5-5.1)
[2022-08-08 13:57] LABS: Bilirubin, Total 29.2 mg/dL (0.2-1.0)
[2022-08-08 14:03] LABS: BUN/Creatinine Ratio 23.9
[2022-08-08 14:29] LABS: Total Protein 4.4 g/dL (6.4-8.2)
[2022-08-08 17:00] VITALS: BP 93/56
[2022-08-08] MEDS ORDERED: ALBUTEROL SULF 2.5 MG/0.5ML(0.5%) NEB SOLN NEB PRN (18:00)
[2022-08-08] MEDS ORDERED: IPRATROPIUM BROM 0.5 MG/2.5ML INH SOL NEB PRN (18:00)
== END 2022-08-08 20:38 | disposition home health service (06) | DRG 130 ==
LOC: ER 12:27 → EDBD 12:27 → ICU WEST 15:22 → TELE-WESTW 08-04 17:59
PROVIDERS: ADMIT Nurse Practitioner Acute Care; ATTEND Internal Medicine Pulmonary Disease
PROC: 5A1955Z Respiratory Ventilation, Greater than 96 Consecutive Hours (ICD-10-PCS; principal; 2022-07-27)
PROC: 0BH17EZ Insertion of Endotracheal Airway into Trachea, Via Natural or Artificial Opening (ICD-10-PCS; 2022-07-27)
PROC: 03HY32Z Insertion of Monitoring Device into Upper Artery, Percutaneous Approach (ICD-10-PCS; 2022-07-28)
PROC: 4A133B1 Monitoring of Arterial Pressure, Peripheral, Percutaneous Approach (ICD-10-PCS; 2022-07-28)
PROC: 4A133J1 Monitoring of Arterial Pulse, Peripheral, Percutaneous Approach (ICD-10-PCS; 2022-07-28)
PROC: 02HV33Z Insertion of Infusion Device into Superior Vena Cava, Percutaneous Approach (ICD-10-PCS; 2022-07-28)
PROC: B548ZZA Ultrasonography of Superior Vena Cava, Guidance (ICD-10-PCS; 2022-07-28)
DX: J96.01 Acute respiratory failure with hypoxia (principal); K72.00 Acute and subacute hepatic failure without coma; I46.9 Cardiac arrest, cause unspecified; N17.0 Acute kidney failure with tubular necrosis; G93.41 Metabolic encephalopathy; I21.4 Non-ST elevation (NSTEMI) myocardial infarction; R18.8 Other ascites; J18.9 Pneumonia, unspecified organism; D68.9 Coagulation defect, unspecified; R57.9 Shock, unspecified; Z20.822 Contact with and (suspected) exposure to COVID-19; D69.6 Thrombocytopenia, unspecified; E87.0 Hyperosmolality and hypernatremia; I50.9 Heart failure, unspecified; E87.1 Hypo-osmolality and hyponatremia; E87.5 Hyperkalemia; E87.6 Hypokalemia; F17.200 Nicotine dependence, unspecified, uncomplicated; J43.9 Emphysema, unspecified; Z86.16 Personal history of COVID-19
CPT/HCPCS: 36415; 36600; 70450; 71045; 71260; 74177; 76705; 80048; 80053; 80061; 80074; 80307; 81001; 82140; 82728; 82805; 82962; 83036; 83605; 83690; 83735; 83880; 84100; 84132; 84443; 84484; 85007; 85025; 85027; 85379; 85610; 85730; 86141; 86704; 86706; 86708; 86803; 87040; 87070; 87077; 87081; 87086; 87088; 87205; 87340; 92610; 93005; 93306; 93970; 94002; 94003; 94640; 96365; 96375; 97163; 99291; C9113; G0378; J0330; J1815; J2185; J2250; J2704; J3430; J3480; J3490; J7060; P9047